=== PATIENT | female | born 1945 | race Caucasian/White ===

== ENCOUNTER → 2016-07-26 | Outpatient (CLI) | payer MEDICARE, OTHER ==
[2016-07-26 12:22] LABS: ABSOLUTE BASOPHILS # (AUTO) 0.1 10^3/uL (0.0-0.2); ABSOLUTE EOSINOPHILS # (AUTO) 0.1 10^3/uL (0.0-0.6); ABSOLUTE LYMPHOCYTES (AUTO) 1.5 10^3/uL (0.5-4.7); ABSOLUTE MONOCYTES (AUTO) 0.7 10^3/uL (0.1-1.4); BASOPHILS % (AUTO) 0.8 % (0-2); EOSINOPHILS % (AUTO) 0.9 % (0-6); HEMATOCRIT 36.3 % (36.0-47.0); HEMOGLOBIN 12.2 g/dL (12.0-15.5); HGB HCT DIFFERENCE 0.3; LYMPHOCYTES % (AUTO) 14.4 % (13-45); MEAN CORPUSCULAR HEMOGLOBIN 30.7 pg (27.0-33.4); MEAN CORPUSCULAR HGB CONC 33.6 g/dL (32.0-36.0); MEAN CORPUSCULAR VOLUME 91 fl (80-97); MONOCYTES % (AUTO) 6.4 % (3-13); RED BLOOD COUNT 3.97 10^6/uL (3.72-5.28); RED CELL DISTRIBUTION WIDTH 16.6 % (11.5-14.0); SEGMENTED NEUTROPHILS % (AUTO) 77.5 % (42-78); WHITE BLOOD COUNT 10.3 10^3/uL (4.0-10.5)
[2016-07-26 12:28] LABS: PARTIAL THROMBOPLASTIN TIME 27.1 SEC (23.5-35.8)
[2016-07-26 12:42] LABS: APPEARANCE,URINE CLOUDY; BILIRUBIN,URINE NEGATIVE (NEGATIVE); GLUCOSE, URINE NEGATIVE (NEGATIVE); KETONES,URINE NEGATIVE (NEGATIVE); LEUKOCYTE ESTERASE,URINE TRACE (NEGATIVE); NITRITE,URINE NEGATIVE (NEGATIVE); PROTEIN,URINE NEGATIVE (NEGATIVE); UROBILINOGEN,URINE NEGATIVE mg/dL (<2.0)
== END ==
LOC: OD 11:25
PROVIDERS: ATTEND Pain Medicine Interventional Pain Medicine
DX: Z79.01 Long term (current) use of anticoagulants (principal)
CPT/HCPCS: 36415; 81001; 85025; 85610; 85730

== ENCOUNTER → 2016-07-29 | Outpatient (CLI) | payer MEDICARE, OTHER ==
[2016-07-29 13:50] LABS: APPEARANCE,URINE SLIGHTLY-CLOUDY; BILIRUBIN,URINE NEGATIVE (NEGATIVE); GLUCOSE, URINE NEGATIVE (NEGATIVE); KETONES,URINE NEGATIVE (NEGATIVE); LEUKOCYTE ESTERASE,URINE NEGATIVE (NEGATIVE); NITRITE,URINE NEGATIVE (NEGATIVE); PROTEIN,URINE NEGATIVE (NEGATIVE); URINE SPECIFIC GRAVITY 1.012; UROBILINOGEN,URINE NEGATIVE mg/dL (<2.0)
== END ==
LOC: OD 12:39
PROVIDERS: ATTEND Pain Medicine Interventional Pain Medicine
DX: N39.0 Urinary tract infection, site not specified (principal)
CPT/HCPCS: 81001

== ENCOUNTER 2016-09-10 13:05 | Observation (INO) | payer MEDICARE, OTHER ==
[2016-09-04 11:09] LABS: HEMATOCRIT 40.1 % (36.0-47.0); HEMOGLOBIN 13.4 g/dL (12.0-15.5); HGB HCT DIFFERENCE 0.1; MEAN CORPUSCULAR HEMOGLOBIN 30.6 pg (27.0-33.4); MEAN CORPUSCULAR HGB CONC 33.3 g/dL (32.0-36.0); MEAN CORPUSCULAR VOLUME 92 fl (80-97); RED BLOOD COUNT 4.37 10^6/uL (3.72-5.28); RED CELL DISTRIBUTION WIDTH 14.8 % (11.5-14.0); WHITE BLOOD COUNT 10.5 10^3/uL (4.0-10.5)
[2016-09-04 11:10] LABS: APPEARANCE,URINE CLOUDY; BILIRUBIN,URINE NEGATIVE (NEGATIVE); GLUCOSE, URINE NEGATIVE (NEGATIVE); KETONES,URINE NEGATIVE (NEGATIVE); LEUKOCYTE ESTERASE,URINE NEGATIVE (NEGATIVE); NITRITE,URINE NEGATIVE (NEGATIVE); PROTEIN,URINE NEGATIVE (NEGATIVE); URINE SPECIFIC GRAVITY 1.016; UROBILINOGEN,URINE NEGATIVE mg/dL (<2.0)
[2016-09-04 11:18] LABS: PROTHROMBIN TIME 12.3 SEC (11.4-15.4)
[2016-09-04 11:19] LABS: PARTIAL THROMBOPLASTIN TIME 24.6 SEC (23.5-35.8)
--- NOTE | 2016-09-04 21:45 | EKG REPORT ---
SEVERITY:- OTHERWISE NORMAL ECG - SINUS RHYTHM VENTRICULAR PREMATURE COMPLEX : Confirmed by: Kevin Dave 04-Sep-2016 21:44:20
[~2016-09-10 13:05] MED LIST: BUPIVACAINE HCL 0.25% /EPINEPHRINE INJ/PF 30 ML SDV ONE; CEFAZOLIN SODIUM 1 GM in DEXTROSE 5%-WATER 50 ML IV PRN; LACTATED RINGERS 1000 ML IV PRN; LIDOCAINE 0.5% INJ-PF (5 MG/ML) 50 ML SDV SUBCUT PRN; LIDOCAINE 1% INJ-PF (10 MG/ML) 30 ML SDV ONE; LIDOCAINE 2% INJ-PF (20 MG/ML) 10 ML AMPUL ONE; ONDANSETRON HCL INJ/PF 4 MG/2 ML SDV ONE; SODIUM BICARBONATE 8.4% INJ 50 MEQ/50 ML DISP.SYRIN ONE
[2016-09-10] MEDS ORDERED: MIDAZOLAM 2 MG/2 ML INJ ONE (14:35)
[2016-09-10] MEDS ORDERED: FENTANYL CITRATE INJ/PF 100 MCG/2 ML AMPUL ONE (14:35)
[2016-09-10] MEDS ORDERED: PROPOFOL INJ 200 MG/20 ML VIAL IV ONE (14:36)
[2016-09-10] MEDS ORDERED: PROMETHAZINE HCL INJ 25 MG/1 ML VIAL IV PRN ×2 (15:50)
[2016-09-10] MEDS ORDERED: FENTANYL CITRATE INJ/PF 100 MCG/2 ML AMPUL IV PRN ×3 (15:50)
[2016-09-10] MEDS ORDERED: DIPHENHYDRAMINE HCL 50 MG/ML VIAL IV PRN (15:50)
[2016-09-10] MEDS ORDERED: MORPHINE SULFATE 10 MG/ML INJ IV PRN (15:50)
[2016-09-10] MEDS ORDERED: MEPERIDINE HCL/PF INJ 25 MG/1 ML DISP.SYRIN IV PRN (15:50)
[2016-09-10] MEDS ORDERED: OXYCODONE-ACETAMINOPHEN 5-325 MG TABLET PO PRN ×3 (15:50→18:13)
[2016-09-10] MEDS ORDERED: CEFAZOLIN INJ 1 GM VIAL ONE (17:04)
[2016-09-10] MEDS: FENTANYL CITRATE INJ/PF 100 MCG/2 ML AMPUL ONE ×2 (17:30→17:44)
[2016-09-10] MEDS ORDERED: MORPHINE SULFATE 10 MG/ML INJ ONE (17:51)
[2016-09-10] MEDS: HYDROMORPHONE HCL INJ/PF 2 MG/ML AMPULE ONE ×2 (18:15→18:35)
--- NOTE | 2016-09-10 18:18 | OPERATIVE REPORT E ---
Operative Report NAME: FRANKIE MIRELES : 1945 AGE: 71Y DATE OF SURGERY: 09/10/2016 ROOM: PREOPERATIVE DIAGNOSES: 1. Lumbar radiculopathy. 2. Post lumbar laminectomy pain syndrome. POSTOPERATIVE DIAGNOSIS: 1. Lumbar radiculopathy. 2. Post lumbar laminectomy pain syndrome. OPERATION: Insertion of dual-octrode spinal cord stimulator system, Nevro device, and implantable pulse generator. SURGEON: MARCIA DOVER M.D. SECONDARY SURGEON: XIAO LEWIS M.D. ANTIBIOTICS: 1 g Ancef given perioperatively. ANESTHESIA: Local with sedation. IV FLUIDS: 1 L balanced crystalloid solution. ESTIMATED BLOOD LOSS: 5 mL. OPERATIVE FINDINGS: Dual-octrode leads placed. Top lead standing from top of T8 to bottom of T9 and bottom lead standing from midbody T9 to top of T11. OPERATIVE INDICATIONS: The patient is a pleasant 71-year-old female with longstanding low back pain post lumbar laminectomy pain syndrome due to arachnoiditis and lumbar radiculopathy. The patient underwent successful trial of Nevro spinal cord stimulation system and was pleased and agreed to progress with permanent implantation. Risks and benefits of the procedure were discussed in detail including but not limited to bleeding, bruising, infection, injury to nerves/arteries/veins, loss of bowel or bladder function, paralysis, and potentially even . Also, failure to alleviate to pain was discussed. The patient agreed to said risks and was consented for the procedure. OPERATIVE DETAIL: The patient was taken by Anesthesia to the operating suite she was placed in prone position. All pressure points were checked and padded. Standard A S A lines and monitors were applied. The patient was prepped and draped in sterile fashion using chlorhexidine gluconate solution, Ioban, and a universal drape. C-arm for fluoroscopic guidance was also draped sterilely into the field. AP fluoroscopy was utilized to determine planned site for entry into the epidural space, and incision site was marked. The skin was anesthetized with buffered 1% lidocaine using a 27-gauge needle initially, and then deeper tissues were infiltrated with 0.25% bupivacaine with 1:100,000 epinephrine on a 25-gauge needle. Incision was made with a 15-blade scalpel in the midline of the back. Subsequently, blunt and electrocautery dissection were utilized to expose the prevertebral fascia. At this point, the tract for the Tuohy needle entry into the epidural space was anesthetized with 1% lidocaine using a 3.5-inch 22-gauge spinal needle. Subsequently, a Tuohy needle with slight curve provided by the [employer] kit was advanced initially to the L1-L2 interspace. Access to the interspace was gained using a loss of resistance technique with normal saline. Once of loss of resistance was obtained, a octrode lead was advanced through the needle and confirmed to be in the posterior epidural space; however, given the angulation of the needle at this level, further advancement of the lead was not possible. As such, the needle was removed and angled to the T12-L1 interspace where loss of resistance was gained easily. The octrode lead was advanced to the near top of T8 vertebral body. The procedure was performed in the exact same fashion on the left side with loss of resistance at the T12-L1 level. This particular lead was advanced to the midportion of the T9 vertebral body in a staggered array in the midline with the other lead. At this juncture, attention was turned to the right-sided buttock pocket. Skin was anesthetized with 1% lidocaine with a 27-gauge needle and underlying tissues with 0.25% bupivacaine with 1:100,000 epinephrine. Incision was made using a 15-blade scalpel, and then blunt and Bovie dissection was performed to expose a pocket appropriate for the size of the implantable pulse generator. Adequate hemostasis was achieved in both incision sites. At this point, a pursestring suture was placed with 0 Mersilene around each of the needle-protected leads. An additional stay suture was placed in the fascia. Needle was removed under continuous fluoroscopic guidance to insure no migration of the lead. Stylette was likewise removed from the lead. An anchor provided by the [employer] kit was advanced over the lead. This was affixed to the fascia using the pursestring suture which had subsequently been tightened in a stay suture. The leads were further secured with a hex wrench. The procedure was then performed in the exact same fashion on the opposite side. Confirmation of lead placement without migration or anterior placement was confirmed with AP and lateral fluoroscopy. At this point, copious irrigation of both incisions was performed with dilute Betadine solution. Subsequently, tunneling was performed from the midline to the pocket incision after anesthesia with 1% lidocaine on a spinal needle. The leads were tunneled to the buttock pocket and attached to the implantable pulse generator. Impedances were checked and found to be appropriate. The implantable pulse generator was then implanted into the buttock pocket, leaving strain relief loops behind the battery. An additional strain relief loop was left in the midline. Closure then ensued with 3-0 Vicryl in interrupted fashion. In the midline, this was done in dual-layer closure, and then skin was closed with mark. On the buttock pocket, this was done in single-layer fashion with interrupted 3-0 Vicryl, and the skin was closed with Dermabond tape and glue. The patient tolerated the procedure well and was accompanied by Anesthesia to the Post Anesthesia Recovery Unit in stable condition. She will follow up with [facility] tomorrow for further evaluation and postoperative management. DICTATING PHYSICIAN: MARCIA DOVER M.D. [id number] PHY#: [id number] ID: [id number] JOB#: [id number] ACCT: [id number] cc:MARCIA DOVER M.D. >
[2016-09-10] MEDS ORDERED: HYDROMORPHONE HCL INJ/PF 2 MG/ML AMPULE IV ONE (18:45)
[2016-09-10] MEDS ORDERED: DIAZEPAM 5 MG TABLET PO ONE (19:30)
[2016-09-10] MEDS ORDERED: GABAPENTIN 300 MG CAPSULE PO ONE (19:30)
[2016-09-10 20:59] VITALS: BP 125/62
== END 2016-09-10 21:30 | disposition home or self-care (01) ==
LOC: OROUT 13:05 → 2N 20:10
PROVIDERS: ADMIT Pain Medicine Interventional Pain Medicine; ATTEND Pain Medicine Interventional Pain Medicine
PROC: 00HU3MZ Insertion of Neurostimulator Lead into Spinal Canal, Percutaneous Approach (ICD-10-PCS; principal; 2016-09-10 15:30)
DX: M54.17 Radiculopathy, lumbosacral region (principal); M96.1 Postlaminectomy syndrome, not elsewhere classified; Z79.899 Other long term (current) drug therapy; Z79.01 Long term (current) use of anticoagulants; I10 Essential (primary) hypertension; M19.90 Unspecified osteoarthritis, unspecified site
CPT/HCPCS: 93005; 36415 ×2; 84132; 85027; 85610; 85730; 81001; 71020; 72100; 93010; 63685; 63650 ×2; C1822; J2250; J3490 ×4; J0690; A9270 ×2; J3010; J2270; J1170; J2405; J2704; 300

== ENCOUNTER 2017-08-26 06:08 | Day surgery (SDC) | payer MEDICARE, OTHER ==
[2017-08-19 10:12] LABS: HEMATOCRIT 38.8 % (36.0-47.0); HEMOGLOBIN 12.9 g/dL (12.0-15.5); MEAN CORPUSCULAR HEMOGLOBIN 30.5 pg (27.0-33.4); MEAN CORPUSCULAR HGB CONC 33.2 g/dL (32.0-36.0); MEAN CORPUSCULAR VOLUME 92 fl (80-97); PLATELET COUNT 307 10^3/uL (150-450); RED BLOOD COUNT 4.22 10^6/uL (3.72-5.28); RED CELL DISTRIBUTION WIDTH 13.8 % (11.5-14.0); WHITE BLOOD COUNT 9.4 10^3/uL (4.0-10.5)
[2017-08-19 10:24] LABS: INTERNATIONAL RATION (INR) 0.87; PROTHROMBIN TIME 12.5 SEC (11.4-15.4)
[2017-08-19 10:25] LABS: PARTIAL THROMBOPLASTIN TIME 31.1 SEC (23.5-35.8)
[2017-08-19 10:31] LABS: APPEARANCE,URINE SLIGHTLY-CLOUDY; BILIRUBIN,URINE NEGATIVE (NEGATIVE); COLOR,URINE YELLOW; GLUCOSE, URINE NEGATIVE (NEGATIVE); KETONES,URINE NEGATIVE (NEGATIVE); LEUKOCYTE ESTERASE,URINE SMALL (NEGATIVE); NITRITE,URINE NEGATIVE (NEGATIVE); PROTEIN,URINE NEGATIVE (NEGATIVE); URINE SPECIFIC GRAVITY 1.009; UROBILINOGEN,URINE NEGATIVE mg/dL (<2.0)
--- NOTE | 2017-08-19 12:13 | RADIOLOGY REPORT (SQ) ---
EXAM DESCRIPTION: CHEST PA/LATERAL COMPLETED DATE/TIME: 08/19/2017 9:56 am REASON FOR STUDY: PRE OP COMPARISON: 09/04/2016 EXAM PARAMETERS: NUMBER OF VIEWS: two views TECHNIQUE: Digital Frontal and Lateral radiographic views of the chest acquired. RADIATION DOSE: NA LIMITATIONS: none FINDINGS: LUNGS AND PLEURA: Minimal right basilar atelectasis. Findings are accentuated by low lung volumes. No effusions. MEDIASTINUM AND HILAR STRUCTURES: No masses or contour abnormalities. HEART AND VASCULAR STRUCTURES: Heart normal size. No evidence for failure. BONES: No acute findings. HARDWARE: No hardware in the chest. Neurostimulator is in place in the spine. OTHER: No other significant finding. IMPRESSION: Minimal right basilar atelectasis. No other significant findings. TECHNICAL DOCUMENTATION: JOB ID: [id number] [employer]- All Rights Reserved
--- NOTE | 2017-08-19 13:03 | EKG REPORT ---
SEVERITY:- NORMAL ECG - SINUS RHYTHM : Confirmed by: Galo Solano MD 19-Aug-2017 13:02:16
[~2017-08-26 06:08] MED LIST changes: -BUPIVACAINE HCL 0.25% /EPINEPHRINE INJ/PF 30 ML SDV ONE; +CEFAZOLIN 1 GM/D5W RTU 1 GM/50 ML RTUPB IV PRN; -CEFAZOLIN SODIUM 1 GM in DEXTROSE 5%-WATER 50 ML IV PRN; -LIDOCAINE 1% INJ-PF (10 MG/ML) 30 ML SDV ONE; -LIDOCAINE 2% INJ-PF (20 MG/ML) 10 ML AMPUL ONE; -ONDANSETRON HCL INJ/PF 4 MG/2 ML SDV ONE; -SODIUM BICARBONATE 8.4% INJ 50 MEQ/50 ML DISP.SYRIN ONE
[2017-08-26] MEDS ORDERED: SODIUM BICARBONATE 8.4% INJ 50 MEQ/50 ML DISP.SYRIN ONE (06:37)
[2017-08-26] MEDS ORDERED: LIDOCAINE 1% INJ-PF (10 MG/ML) 30 ML SDV ONE (06:37)
[2017-08-26] MEDS ORDERED: BUPIVACAINE HCL 0.5%-EPI 1:200000 INJ/PF 30 ML VIAL ONE (06:37)
[2017-08-26] MEDS ORDERED: LIDOCAINE 2% INJ-PF (20 MG/ML) 10 ML AMPUL ONE (07:01)
[2017-08-26] MEDS ORDERED: MIDAZOLAM 2 MG/2 ML INJ ONE (07:02)
[2017-08-26] MEDS ORDERED: FENTANYL CITRATE INJ/PF 100 MCG/2 ML AMPUL ONE (07:02)
[2017-08-26] MEDS ORDERED: PROPOFOL INJ 200 MG/20 ML VIAL IV ONE (07:02)
[2017-08-26] MEDS ORDERED: MEPERIDINE HCL/PF INJ 25 MG/1 ML DISP.SYRIN IV PRN (08:24)
[2017-08-26] MEDS ORDERED: FENTANYL CITRATE INJ/PF 100 MCG/2 ML AMPUL IV PRN ×3 (08:24)
[2017-08-26] MEDS ORDERED: DIPHENHYDRAMINE HCL 50 MG/ML VIAL IV PRN (08:24)
[2017-08-26] MEDS ORDERED: ONDANSETRON HCL INJ/PF 4 MG/2 ML SDV IV PRN (08:24)
[2017-08-26] MEDS ORDERED: PROMETHAZINE HCL INJ 25 MG/1 ML VIAL IV PRN ×2 (08:24)
[2017-08-26] MEDS ORDERED: CEFAZOLIN INJ 1 GM VIAL ONE (09:02)
[2017-08-26] MEDS ORDERED: OXYCODONE-ACETAMINOPHEN 5-325 MG TABLET PO PRN (09:07)
--- NOTE | 2017-08-26 09:20 | OPERATIVE REPORT E ---
Operative Report NAME: FRANKIE MIRELES : 1945 AGE: 72Y DATE OF SURGERY: 08/26/2015 ROOM: PREOPERATIVE DIAGNOSIS: NONFUNCTIONING NEVRO SPINAL CORD STIMULATOR BATTERY. POSTOPERATIVE DIAGNOSIS: NONFUNCTIONING NEVRO SPINAL CORD STIMULATOR BATTERY. OPERATION: Remove and replace battery with [employer] rechargeable, reprogrammable spinal cord stimulator system with complex programming and analysis. SURGEON: XIAO LEWIS M.D. TRIM MACHINE ADJUSTER: None. ANESTHESIA: MAC TISSUE REMOVED OR ALTERED: Spinal cord stimulator, Nevro. COMPLICATIONS: None. INDICATIONS: Nonfunctioning battery. PROCEDURE: After obtaining informed consent, advising the patient of the risks and benefits to include bleeding and infection, failure of stimulator to provide relief, allergic reaction to medication, aggravation of pain, allergic reaction and , she was taken to the operating room and placed comfortably in the prone position. Comfort was assessed visually and verbally. Monitors were applied per anesthesia. She was prepped with chlorhexidine with appropriate drying time, followed by appropriate draping. The battery over the right gluteal region was readily identified. The skin was anesthetized at the prior incision and scar with 1% lidocaine with bicarbonate. This was followed with 0.25% bupivacaine with epinephrine. Sharp and blunt dissection was performed down to the battery and this was readily identified and removed without difficulty. The hex nuts were loosened. The leads were disconnected. Lead extensions were placed to facilitate connection of these leads to a new battery using a [employer] system. The extension leads were then connected to the new battery and all of the system was tested for impedance and function was found to be satisfactory. All hex nuts were tightened at the lead extensions as well as the pulse generator. It should be noted that the lead that had been colored black from the initial implant was placed in socket B on the [employer] stimulator. The lead blanks were placed into the lower 2 vacant lead ports on the [employer] battery. All hex nuts on the battery were then tightened. It was tested again for impedance and was found to be satisfactory at all locations. The wound was then copiously irrigated with Betadine containing irrigation solution. The lead extension and excess wiring were placed behind the battery and the battery was then placed into the pocket with the [employer] labeling facing the skin. The wound was then closed with inverted vertical mattress sutures using 3-0 Polysorb. The skin came together quite nicely. This was sealed with Dermabond tape followed by cement. When this was dry, Telfa was placed followed by an op site dressing. She was then taken to the PACU for further postoperative care and monitoring. DICTATING PHYSICIAN: XIAO LEWIS M.D. [id number] PHY#: [id number] ID: [id number] JOB#: [id number] ACCT: [id number] cc:XIAO LEWIS M.D. >
[2017-08-26 11:46] VITALS: BP 123/70
== END 2017-08-26 10:50 | disposition home or self-care (01) ==
LOC: OROUT 06:08
PROVIDERS: ATTEND Pain Medicine Interventional Pain Medicine
PROC: 0JH70MZ Insertion of Stimulator Generator into Back Subcutaneous Tissue and Fascia, Open Approach (ICD-10-PCS; principal; 2017-08-26 08:00)
DX: G89.4 Chronic pain syndrome (principal); I10 Essential (primary) hypertension; M96.1 Postlaminectomy syndrome, not elsewhere classified; F45.42 Pain disorder with related psychological factors; M25.552 Pain in left hip; M25.551 Pain in right hip; M65.30 Trigger finger, unspecified finger; M79.1 Myalgia; M51.37 Other intervertebral disc degeneration, lumbosacral region; M71.551 Other bursitis, not elsewhere classified, right hip; M79.2 Neuralgia and neuritis, unspecified; Z79.01 Long term (current) use of anticoagulants; Z79.899 Other long term (current) drug therapy; Z79.891 Long term (current) use of opiate analgesic; Z79.1 Long term (current) use of non-steroidal anti-inflammatories (NSAID); Z79.82 Long term (current) use of aspirin; Z88.5 Allergy status to narcotic agent; Z91.040 Latex allergy status
CPT/HCPCS: 63685; 93005; 36415 ×2; 84132; 85027; 85610; 85730; 81001; 71046; 93010; C1820; J2250; J3490 ×4; J0690 ×2; J3010; J2704; 1936

== ENCOUNTER → 2018-06-05 | Day surgery (SDC) | payer MEDICARE, OTHER ==
--- NOTE | 2018-06-05 14:55 | RADIOLOGY REPORT (SQ) ---
EXAM DESCRIPTION: CT RT UPPER EXTREMITY WITH COMPLETED DATE/TIME: 06/05/2018 2:33 pm REASON FOR STUDY: PAIN IN RIGHT SHOULDER (M25.511) M25.511 PAIN IN RIGHT SHOULDER COMPARISON: None. TECHNIQUE: Axial imaging performed through the rightshoulder with reformatted oblique coronal and ob lique sagittal imaging windowed for bone and soft tissues. All CT scanners at this facility use dose modulation, iterative reconstruction, and/or weight based d osing when appropriate to reduce radiation dose to as low as reasonably achievable (ALARA). [facility]: Dose Right [facility]: CareDose [facility]: Dose Right [facility]: Teradose 4D [facility]: [employer] RADIATION DOSE: CT Rad equipment meets quality standard of care and radiation dose reduction techniq ues were employed. CTDIvol: 15.0 mGy. DLP: 436 mGy-cm. mGy. LIMITATIONS: None. FINDINGS: SOFT TISSUES: No axillary masses or adenopathy. No supraclavicular masses or adenopathy. BONY ARCHITECTURE: Normal bone density. No lytic or blastic lesions. No fracture GLENOHUMERAL JOINT: Normal alignment. Mild chondromalacia without bulky bony spurring ACROMION AND AC JOINT: Type 2 acromion with bulky acromioclavicular joint hypertrophy narrowing the s ubacromial space, best shown on sagittal reconstruction image 50 ROTATOR CUFF: Broad diffuse distal supraspinatus/ anterior half infraspinatus full-thickness tear wit h a large bare area over the right humeral head, best shown on sagittal reconstruction images 54-62, and coronal reconstruction images 25-31. Distal subscapularis attachment tear, axial images 33-40. GLENOID, LABRUM AND BICEPS: Intra-articular long head biceps tendon not well seen. Superior labrum i ntact OTHER: No other significant finding. IMPRESSION: Full-thickness supra and infraspinatus stairs Near complete full-thickness tear of the distal supraspinatus tendon Acromioclavicular joint hypertrophy with narrowing of the subacromial space TECHNICAL DOCUMENTATION: JOB ID: [id number] Quality ID # [id number]: Final reports with documentation of one or more dose reduction techniques (e.g., Au tomated exposure control, adjustment of the mA and/or kV according to patient size, use of iterative reconstruction technique) 2010 [employer]- All Rights Reserved Reading location - IP/workstation name: [email or web address]
--- NOTE | 2018-06-05 15:16 | RADIOLOGY REPORT (SQ) ---
EXAM DESCRIPTION: ARTHRO SHOULDER INJECTION; FLUORO/NEEDLE PLACEMENT COMPLETED DATE/TIME: 06/05/2018 2:34 pm REASON FOR STUDY: PAIN IN RIGHT SHOULDER (M25.511) M25.511 PAIN IN RIGHT SHOULDER COMPARISON: Right shoulder films 12/01/2009 FLUOROSCOPY TIME: 19 seconds 2 digital images saved to PACS. LIMITATIONS: None. PROCEDURE: Procedure, risks, benefits and alternatives explained to patient who then gave written co nsent. The posterior right shoulder was marked and a time out was called for correct procedure verifi cation. Posterior entry site marked using fluoroscopic guidance. Shoulder prepped and draped using sterile technique. Local anesthesia achieved using 9 mL of 1% lidocaine injection. 22 gauge spinal needle introduced into the joint space under direct fluoroscopic visualization. Non-ionic contrast in stilled to confirm intra-articular position. Dilute Omnipaque solution then injected. Needle removed and entry site covered with sterile bandage. No immediate complications noted. TECHNIQUE: Digital images acquired during fluoroscopy and stored on PACS. Patient immediately take n to the CT suite for additional imaging. INJECTION LOCATION: Right posterior glenohumeral joint CONTRAST TYPE AND AMOUNT: 2 mL of Omnipaque 300 was injected to confirm intra-articular needle placem ent followed by 10 mL of dilute Omnipaque/ saline for CT arthrogram IMPRESSION: SUCCESSFUL NEEDLE PLACEMENT AND INJECTION FOR RIGHT SHOULDER CT ARTHROGRAM USING POSTERI OR APPROACH. COMMENT: Quality ID 145: Final reports for procedures using fluoroscopy that document radiation exp osure indices, or exposure time and number of fluorographic images (if radiation exposure indices are not available) TECHNICAL DOCUMENTATION: JOB ID: [id number] [employer]- All Rights Reserved Reading location - IP/workstation name: [facility]
--- NOTE | 2018-06-05 15:16 | RADIOLOGY REPORT (SQ) ---
EXAM DESCRIPTION: ARTHRO SHOULDER INJECTION; FLUORO/NEEDLE PLACEMENT COMPLETED DATE/TIME: 06/05/2018 2:34 pm REASON FOR STUDY: PAIN IN RIGHT SHOULDER (M25.511) M25.511 PAIN IN RIGHT SHOULDER COMPARISON: Right shoulder films 12/01/2009 FLUOROSCOPY TIME: 19 seconds 2 digital images saved to PACS. LIMITATIONS: None. PROCEDURE: Procedure, risks, benefits and alternatives explained to patient who then gave written co nsent. The posterior right shoulder was marked and a time out was called for correct procedure verifi cation. Posterior entry site marked using fluoroscopic guidance. Shoulder prepped and draped using sterile technique. Local anesthesia achieved using 9 mL of 1% lidocaine injection. 22 gauge spinal needle introduced into the joint space under direct fluoroscopic visualization. Non-ionic contrast in stilled to confirm intra-articular position. Dilute Omnipaque solution then injected. Needle removed and entry site covered with sterile bandage. No immediate complications noted. TECHNIQUE: Digital images acquired during fluoroscopy and stored on PACS. Patient immediately take n to the CT suite for additional imaging. INJECTION LOCATION: Right posterior glenohumeral joint CONTRAST TYPE AND AMOUNT: 2 mL of Omnipaque 300 was injected to confirm intra-articular needle placem ent followed by 10 mL of dilute Omnipaque/ saline for CT arthrogram IMPRESSION: SUCCESSFUL NEEDLE PLACEMENT AND INJECTION FOR RIGHT SHOULDER CT ARTHROGRAM USING POSTERI OR APPROACH. COMMENT: Quality ID 145: Final reports for procedures using fluoroscopy that document radiation exp osure indices, or exposure time and number of fluorographic images (if radiation exposure indices are not available) TECHNICAL DOCUMENTATION: JOB ID: [id number] [employer])- All Rights Reserved Reading location - IP/workstation name: [facility]
== END ==
LOC: RAD 13:39
PROVIDERS: ATTEND Orthopaedic Surgery
DX: M25.511 Pain in right shoulder (principal)
CPT/HCPCS: 23350; 77002

== ENCOUNTER → 2018-10-19 | Day surgery (SDC) | payer MEDICARE, OTHER ==
[~2018-10-19] MED LIST changes: +BUPIVACAINE HCL 0.5 % INJ/PF 30 ML SDV ONE; -CEFAZOLIN 1 GM/D5W RTU 1 GM/50 ML RTUPB IV PRN; -LACTATED RINGERS 1000 ML IV PRN; -LIDOCAINE 0.5% INJ-PF (5 MG/ML) 50 ML SDV SUBCUT PRN; +LIDOCAINE 1% INJ-PF (10 MG/ML) 30 ML SDV ONE; +LIDOCAINE 2% INJ (20 MG/ML) 20 ML MDV ONE; +METHYLPREDNISOLONE ACETATE INJ 40 MG/1 ML ML ONE
== END ==
LOC: RAD 12:27
PROVIDERS: ATTEND Pain Medicine Interventional Pain Medicine
DX: M47.817 Spondylosis without myelopathy or radiculopathy, lumbosacral region (principal)
CPT/HCPCS: 64635; 64640 ×3; J3490 ×3; J1020

== ENCOUNTER → 2019-01-26 | Day surgery (SDC) | payer MEDICARE, OTHER ==
[~2019-01-26] MED LIST changes: -LIDOCAINE 1% INJ-PF (10 MG/ML) 30 ML SDV ONE
--- NOTE | 2019-01-26 11:56 | Operative Report ---
PREOPERATIVE DIAGNOSIS: Lumbar Spondylosis POSTOPERATIVE DIAGNOSIS: Lumbar Spondylosis PROCEDURE: Radiofrequency Ablation of medial branches - RT L3 L4 and Lt L3 L4. DATE OF PROCEDURE: January 26, 2019 ANESTHESIA: Local COMPLICATIONS: None CONSENT: A full description of the procedure was provided including benefits as well as possible complications. All questions were answered and informed consent was given and signed. ASA guidelines for fasting were verified prior to sedation. PROCEDURE IN DETAIL The patient was brought into the fluoroscopy suite and positioned into the prone position on the fluoroscopy table and allowed to adjust to a position of comfort. A grounding pad was placed on the left thigh. The lumbar region was widely prepped with a chloraprep solution, allowed to air dry and draped in standard sterile surgical fashion. Local anesthesia was provided by 1 mL of 1 % lidocaine delivered with a 25 g needle. A 17g 100mm radiofrequency introducer needle was placed to the planned anatomic targets guided with intermittent fluoroscopy with a perpendicular approach to terminally place at the junction of the superior articular process and the transverse process on the left at L4 and L5. The stylets were removed and radiofrequency probes with a 4mm active tip were then inserted. Needle tip position of the probes was verified in the AP, oblique, and lateral views. At each site, the medial branch nerve was stimulated at 2 Hz to a maximum 1-2 volts determined to finalize safe needle and electrode placement. The patient was awake and responsive during this portion of the procedure. Each target was anesthetized with 1-2 mL of 2 % lidocaine for anesthesia for lesioning and then each target was lesioned at 80 degrees Celsius for 2 minutes and 30 seconds. Tissue impedences were noted to be between 250 and 500 Ohms. Electrodes were removed, and each site was infiltrated with 1mL of a solution containing 40mg depomedrol in 0.25% bupivacaine. Then the needles were withdrawn. Attention was turned to the opposite side where the procedure was performed in identical fashion. Following needle removal, bandages placed over the needle placement sites. The patient was then returned to the supine position on a stretcher and transported to the recovery room without hemodynamic, neurologic, or allergic reactions. Fluoroscopic images were printed for hard copy recording and digitally archived. POST PROCEDURE EVALUATION: The patient was comfortable in the recovery room. The patient is aware that pain may worsen before remitting and 4 - 6 weeks may be required prior to the onset of pain relief. IMPRESSION: 1. Technically successful bilateral L3 L4 medial branch radiofrequency neurotomy for denervation without complication. 2. RTC in 2 weeks. 3. Estimated Blood Loss: Minimal
== END ==
LOC: RAD 10:44
PROVIDERS: ATTEND Pain Medicine Interventional Pain Medicine
DX: M47.817 Spondylosis without myelopathy or radiculopathy, lumbosacral region (principal); M47.812 Spondylosis without myelopathy or radiculopathy, cervical region
CPT/HCPCS: 64635; 64636; J3490 ×2; J1030

== ENCOUNTER → 2019-02-11 | Day surgery (SDC) | payer MEDICARE, OTHER | LOC: RAD 13:33 | PROVIDERS: ATTEND Pain Medicine Interventional Pain Medicine | DX: M25.512 Pain in left shoulder (principal) | CPT/HCPCS: 64640 ×3; J3490 ×2; J1030 ==

== ENCOUNTER → 2019-04-12 | Day surgery (SDC) | payer MEDICARE, OTHER ==
--- NOTE | 2019-04-12 12:00 | Operative Report ---
PREOPERATIVE DIAGNOSIS: Lumbar Spondylosis POSTOPERATIVE DIAGNOSIS: Lumbar Spondylosis PROCEDURE: Radiofrequency Ablation of medial branches - RT L1 L2 AND LT L1 L2 DATE OF PROCEDURE: Apr 12, 2019 ANESTHESIA: local COMPLICATIONS: none CONSENT: A full description of the procedure was provided including benefits as well as possible complications. All questions were answered and informed consent was given and signed. ASA guidelines for fasting were verified prior to sedation. PROCEDURE IN DETAIL The patient was brought into the fluoroscopy suite and positioned into the prone position on the fluoroscopy table and allowed to adjust to a position of comfort. A grounding pad was placed on the LEFT thigh. The lumbar region was widely prepped with a chloraprep solution, allowed to air dry and draped in standard sterile surgical fashion. Local anesthesia was provided by 1 mL of 1% lidocaine delivered with a 25 g needle. A 17g 75 mm radiofrequency introducer needle was placed to the planned anatomic targets guided with intermittent fluoroscopy with a perpendicular approach to terminally place at the junction of the superior articular process and the transverse process of the Left L2 and L3 vertebral bodies. The stylets were removed and radiofrequency probes with a 4mm active tip were then inserted. Needle tip position of the probes was verified in the AP, oblique, and lateral views. At each site, the medial branch nerve was stimulated at 2 Hz to a maximum 1-2 volts determined to finalize safe needle and electrode placement. The patient was awake and responsive during this portion of the procedure. Each target was anesthetized with 1-2 mL of 2% lidocaine for anesthesia for lesioning and then each target was lesioned at 80 degrees Celsius for 2 minutes and 30 seconds. Tissue impedences were noted to be between 250 and 500 Ohms. Electrodes were removed and each site was infiltrated with 1 mL of a solution containing 0.25% bupivacaine with 40 mg of Depo-Medrol. The procedure was then performed in identical fashion on the opposite side. Dubois were then removed and bandages placed over the needle placement sites, the patient then returned t o the supine position on a stretcher and transported to the recovery room without hemodynamic, neurologic, or allergic reactions. Fluoroscopic images were printed for hard copy recording and digitally archived. POST PROCEDURE EVALUATION: The patient was comfortable in the recovery room. The patient is aware that pain may worsen before remitting and 4 - 6 weeks may be required prior to the onset of pain relief. IMPRESSION: 1. Technically successful Bilateral L1 and L2 medial branch radiofrequency neurotomy for denervation without complication. 2. RTC in 3 weeks. 3. Estimated Blood Loss: minimal
== END ==
LOC: RAD 10:34
PROVIDERS: ATTEND Pain Medicine Interventional Pain Medicine
DX: M47.816 Spondylosis without myelopathy or radiculopathy, lumbar region (principal)
CPT/HCPCS: 64636; J3490 ×2; J1030

== ENCOUNTER → 2019-09-28 | Day surgery (SDC) | payer MEDICARE, OTHER ==
[~2019-09-28] MED LIST changes: +LIDOCAINE 1% INJ-PF (10 MG/ML) 30 ML SDV ONE
--- NOTE | 2019-09-28 09:42 | Operative Report ---
PREOPERATIVE DIAGNOSIS: Lumbar Spondylosis POSTOPERATIVE DIAGNOSIS: Lumbar Spondylosis PROCEDURE: Radiofrequency Ablation of medial branches - RT L1 L2 L3 L4. LT L1 L2 L3 L4. DATE OF PROCEDURE: September 28 2019 ANESTHESIA: Local COMPLICATIONS: None CONSENT: A full description of the procedure was provided including benefits as well as possible complications. All questions were answered and informed consent was given and signed. ASA guidelines for fasting were verified prior to sedation. PROCEDURE IN DETAIL The patient was brought into the fluoroscopy suite and positioned into the prone position on the fluoroscopy table and allowed to adjust to a position of comfort. A grounding pad was placed on the right thigh. The lumbar region was widely prepped with a chloraprep solution, allowed to air dry and draped in standard sterile surgical fashion. Local anesthesia was provided by 1 mL of 1 % lidocaine delivered with a 25 g needle. A 17g 75 mm radiofrequency introducer needle was placed to the planned anatomic targets guided with intermittent fluoroscopy with a perpendicular approach to terminally place at the junction of the superior articular process and the transverse process of the right L2 L3 L4 L5 on the right for the L5 medial branch nerve. The stylets were removed and radiofrequency probes with a 4mm active tip were then inserted. Needle tip position of the probes was verified in the AP, oblique, and lateral views. At each site, the medial branch nerve was stimulated at 2 Hz to a maximum 1-2 volts determined to finalize safe needle and electrode placement. The patient was awake and responsive during this portion of the procedure. Each target was anesthetized with 1-2 mL of 2 % lidocaine for anesthesia for lesioning and then each target was lesioned at 80 degrees Celsius for 2 minutes and 30 seconds. Tissue impedences were noted to be between 250 and 500 Ohms. Electrodes were removed and each needle was infiltrated with a mixture of 40 mg of Depo-Medrol and 0.25% bupivacaine. [place] were then removed. Attention was then turned to the opposite side with the procedure was performed in identical fashion. Following the procedure the needles were removed, bandages placed over the needle placement sites, the patient then returned to the supine position on a stretcher and transported to the recovery room without hemodynamic, neurologic, or allergic reactions. Fluoroscopic images were printed for hard copy recording and digitally archived. POST PROCEDURE EVALUATION: The patient was comfortable in the recovery room. The patient is aware that pain may worsen before remitting and 4 - 6 weeks may be required prior to the onset of pain relief. IMPRESSION: 1. Technically successful bilateral L1 L2 L3 L4 medial branch radiofrequency neurotomy for denervation without complication. 2. RTC in 2 weeks. 3. Estimated Blood Loss: Minimal
== END ==
LOC: RAD 08:17
PROVIDERS: ATTEND Pain Medicine Interventional Pain Medicine
DX: M47.816 Spondylosis without myelopathy or radiculopathy, lumbar region (principal)
CPT/HCPCS: 64635; 64636; J3490 ×3; J1030

== ENCOUNTER → 2020-05-02 | Day surgery (SDC) | payer MEDICARE, OTHER ==
--- NOTE | 2020-05-02 10:50 | Operative Report ---
PREOPERATIVE DIAGNOSIS: Lumbar Spondylosis POSTOPERATIVE DIAGNOSIS: Lumbar Spondylosis PROCEDURE: Radiofrequency Ablation of medial branches - RT L1 L2 L3 L4. LT L1 L2 L3 L4. DATE OF PROCEDURE: May 02 2020 ANESTHESIA: Local COMPLICATIONS: None CONSENT: A full description of the procedure was provided including benefits as well as possible complications. All questions were answered and informed consent was given and signed. ASA guidelines for fasting were verified prior to sedation. PROCEDURE IN DETAIL The patient was brought into the fluoroscopy suite and positioned into the prone position on the fluoroscopy table and allowed to adjust to a position of comfort. A grounding pad was placed on the left thigh. The lumbar region was widely prepped with a chloraprep solution, allowed to air dry and draped in standard sterile surgical fashion. Local anesthesia was provided by 1 mL of 1% lidocaine delivered with a 25 g needle. A 17g 75 mm radiofrequency introducer needle was placed to the planned anatomic targets guided with intermittent fluoroscopy with a perpendicular approach to terminally place at the junction of the superior articular process and the transverse process of the left L2 L3 L4 L5 vertebral bodies. The stylets were removed and radiofrequency probes with a 4mm active tip were then inserted. Needle tip position of the probes was verified in the AP, oblique, and lateral views. At each site, the medial branch nerve was stimulated at 2 Hz to a maximum 1-2 volts determined to finalize safe needle and electrode placement. The patient was awake and responsive during this portion of the procedure. Each target was anesthetized with 1-2 mL of 2% lidocaine for anesthesia for lesioning and then each target was lesioned at 80 degrees Celsius for 2 minutes and 30 seconds. Tissue impedences were noted to be between 250 and 500 Ohms. Electrodes were removed and each site was infiltrated with 1 mL of a solution containing 0.25% bupivacaine with 40 mg of Depo-Medrol. Attention was then turned to the opposite side where the procedure was performed in identical fashion. [place] were then removed and bandages placed over the needle placement sites, the patient then returned to the supine position on a stretcher and transported to the recovery room without hemodynamic, neurologic, or allergic reactions. Fluoroscopic images were printed for hard copy recording and digitally archived. POST PROCEDURE EVALUATION: The patient was comfortable in the recovery room. The patient is aware that pain may worsen before remitting and 4 - 6 weeks may be re quired prior to the onset of pain relief. IMPRESSION: 1. Technically successful bilateral L1 L2 L3 L4 medial branch radiofrequency neurotomy for denervation without complication. 2. RTC in 3 weeks. 3. Estimated Blood Loss: Minimal
== END ==
LOC: RAD 08:51
PROVIDERS: ATTEND Pain Medicine Interventional Pain Medicine
DX: M47.816 Spondylosis without myelopathy or radiculopathy, lumbar region (principal)
CPT/HCPCS: 64635; 64636; J3490 ×3; J1030